=== PATIENT | male | born 1955 | race Caucasian/White ===

== ENCOUNTER 2023-06-14 12:55 | Emergency (ER) | payer OTHER ==
[~2023-06-14] VITALS: Ht 188 cm; Wt 99.8 kg
[2023-06-14 16:26] LABS: Automated BF RBC Count 0.111 M/mm3 (0-0); Automated BF WBC Count 1.447 K/mm3 (0-999)
[2023-06-14 16:27] LABS: Body Fluid WBC Count 1447 /mm3 (0-999)
[2023-06-14 16:28] LABS: RBC Count, Body Fluid 111000 /mm3 (0-0)
[2023-06-14 16:42] VITALS: BP 111/88
[2023-06-14 16:46] LABS: Glucose, Body Fluid 13 mg/dL
[2023-06-14 16:49] LABS: Lactate Dehydrogenase, Body Fl 989 U/L; Protein, Body Fluid 5.9 g/dL
[2023-06-14 17:02] LABS: Appearance, Body Fluid Cloudy (Clear); Color, Body Fluid Red (None-Yellow); Total Cell Count, Body Fluid 100
== END 2023-06-14 16:58 | disposition home or self-care (01) ==
LOC: ER 12:55
PROVIDERS: Emergency Medicine
DX: J90 Pleural effusion, not elsewhere classified (principal); Z88.6 Allergy status to analgesic agent
CPT/HCPCS: 32555; 71045; 82945; 83615; 84157; 89051; 99285-25

== ENCOUNTER 2024-03-10 17:40 | Emergency (ER) | payer OTHER ==
[~2024-03-10] VITALS: Ht 188 cm; Wt 88.0 kg
[2024-03-10] MEDS ORDERED: Norco 5-325 Ta1 EACH PO (18:09)
[2024-03-10] MEDS ORDERED: Acetic Acid15 ML BOTHEARS (18:09)
[2024-03-10] MEDS ORDERED: FAMO20 PO (18:10)
[2024-03-10] MEDS ORDERED: DECADRON4 M1 (18:10)
[2024-03-10] MEDS ORDERED: ALBU90OI INH (18:10)
[2024-03-10] MEDS ORDERED: CYCL10 PO (18:10)
[2024-03-10] MEDS ORDERED: CETI5 PO (18:10)
[2024-03-10] MEDS ORDERED: FLUTICASONE-SA1 EAC1 INH (18:11)
[2024-03-10] MEDS ORDERED: FENTANYL1 EA10 TOP (18:11)
[2024-03-10] MEDS ORDERED: FOLI1 PO (18:11)
[2024-03-10] MEDS ORDERED: LEVSOD75 PO (18:11)
[2024-03-10] MEDS ORDERED: Ativan1 MG PO (18:12)
[2024-03-10] MEDS ORDERED: MIRT30 PO (18:12)
[2024-03-10] MEDS ORDERED: LIDO5TO TOP (18:12)
[2024-03-10] MEDS ORDERED: LIDO700A20 TOP (18:12)
[2024-03-10] MEDS ORDERED: NAPR500 PO (18:13)
[2024-03-10] MEDS ORDERED: OMEP20ER PO (18:13)
[2024-03-10] MEDS ORDERED: MONT10T PO (18:13)
[2024-03-10] MEDS ORDERED: OLAN5 PO (18:13)
[2024-03-10] MEDS ORDERED: NARCAN4 M1 (18:13)
[2024-03-10] MEDS ORDERED: ONDA4ODT MM (18:14)
[2024-03-10] MEDS ORDERED: Triamcinolone A15 GM TP (18:14)
[2024-03-10] MEDS ORDERED: TRAZ100 PO (18:14)
[2024-03-10] MEDS ORDERED: ZOLP10 PO (18:15)
[2024-03-10 19:55] VITALS: BP 151/85
[2024-03-10] MEDS ORDERED: LORazepam 1 MG Tab PO ONE (19:55)
== END 2024-03-10 22:22 | disposition home or self-care (01) ==
LOC: ER 17:40
DX: R09.02 Hypoxemia (principal); Z79.899 Other long term (current) drug therapy; Z79.51 Long term (current) use of inhaled steroids; Z88.6 Allergy status to analgesic agent
CPT/HCPCS: 71045; 99285-25; A9270